=== PATIENT | female | born 1975 | race Hispanic/Latino ===

== ENCOUNTER 2017-11-29 04:14 | Inpatient (IN) | payer OTHER ==
[~2017-11-29] VITALS: Ht 160 cm; Wt 113.9 kg
[~2017-11-29 04:14] MED LIST: FENOFIBRIC ACI105 MG PO; METFORMIN HCL1000 M1 PO; NIASPAN500 M1 PO
--- NOTE | 2017-11-29 06:28 | Admission Core Measures ---
Acute Coronary Syndrome (CM) ACS Core Measures Acute Coronary Syndrome Diagnosis No Congestive Heart Failure (NEW) CHF Core Measures Congestive Heart Failure Diagnosis No Cerebrovascular Accident (NEW) CVA Core Measures CVA/TIA Diagnosis No Venous Thromboembolism VTE Core Cristiana (View Protocol) VTE Risk Factors Surgery No Mechanical VTE Prophylaxis d/t N/A MechProphylax Ordered No VTE Pharm Prophylaxis d/t NA PharmProphylax ordered Problem List As ranked by this Provider includes Assessment & Plan 1. S/P laparoscopic sleeve gastrectomy 2. Diabetes 3. Morbid obesity HOME MEDS Home Med List Fenofibric Acid 105 MG TABLET 1 TAB PO DAILY TRIGLYCERIDES (Reported) Metformin HCl 1,000 MG TABLET 1 TAB PO BID DM (Reported) Niacin (Niaspan) 500 MG TAB.ER.24H 1 TAB PO DAILY CHOLESTEROL/TRIGLYCERIDES ( Reported)
--- NOTE | 2017-11-29 06:29 | Surg Short-stay <48hrs Dis Sum ---
Visit Information Visit Dates Admission Date: 11/29/17 Discharge Date: 12/01/17 Surgical Short Stay DC Summary Admission Diagnosis: Morbid Obesity (BMI 45), DM, JOSE, Hyperlipidemia Final Diagnosis: SAME ABOVE, S/P Surgery Date: 11/29/17 Name of Procedure: Laparoscopic Sleeve Gastrectomy Procedure(s): Surgery Date: 11/29/17 Name of Procedure: Laparoscopic Sleeve Gastrectomy Summary/Significant Findings: Electively scheduled laparoscopic sleeve gastrectomy by on 11/29/18 for history of morbid obesity (BMI 45), DM, JOSE, and Hyperlipidemia. Started on a stage 1 bariatric diet post-operatively. An upper gi study done on POD#1 was negative for leak and obstruction. Pain control transitioned from iv to oral medication as able. Accuchecks ordered with sliding scale coverage for history of diabetes, and home metformin was held / stopped. Lovenox teaching done prior to discharge home. Condition at Discharge: stable Discharge Disposition: home or self care Discharge instructions provided to patient/family: Yes Post discharge follow-up plan: follow up with in one week lovenox teaching done Copies to: Rachel HAHN,Alan Santiago
[2017-11-29] MEDS ORDERED: PROTONIX40 M3 PO (08:17)
[2017-11-29] MEDS ORDERED: HYCET 7.5 MG-3473 ML PO (08:17)
[2017-11-29] MEDS ORDERED: LOVENOX40 MG/0.1 SC (08:17)
--- NOTE | 2017-11-29 09:29 | Operative Report ---
Operative/Inv Procedure Report Surgery Date: 11/29/17 Name of Procedure: Laparoscopic Sleeve Gastrectomy Pre-Operative Diagnosis: Morbid Obesity BMI 45, DM, JOSE, Hyperlipidemia Post-Operative Diagnosis: Same Estimated Blood Loss: less than 50ml Surgeon/Programmable Logic Controller Assembler: James Botello DO Anesthesia: general endotracheal tube IV Fluids: 800 cc Drains: None Specimens: Stomach Complications: None Condition: Stable Operative Indication: This is a 42-year-old female presented to the office for workup for bariatric surgery. After appropriate workup was completed I discussed the patient the band, the sleeve, and the gastric bypass. The patient chose to undergo a sleeve gastrectomy. All risks including but not limited to bleeding, infection, leak, stricture, injury to surrounding bowel/esophagus/stomach/liver/spleen, long-term reflux, DVT/PE, and mortality 09/999 patients were discussed in detail. The patient understood everything and decided to proceed. Operative/Procedure Note Note: The patient was brought to the operating room and placed on the operating room table in supine position. Venodyne stockings were placed and adequate general endotracheal anesthesia was obtained. The patient was prepped and draped in standard surgical fashion. Began the procedure by making a 2 cm transverse incision supraumbilically and slightly to the left of the midline. Then using a 12 mm clear Visiport and a 10 mm 0 laparoscope, the abdominal cavity was accessed. Great care was taken to go through the anterior rectus sheath, the posterior rectus sheath, and through the peritoneum. Once we entered the peritoneum the abdominal cavity was insufflated to 15 mmHg. Upon initial examination no obvious gross pathology was seen. Accessory trocars were placed, 5 mm in the epigastrium for the [place] liver retractor. The retractor was inserted and the liver was retracted anteriorly exposing the hiatus, no hiatal hernia was seen. 5 mm ports were placed in the right and left upper quadrant, a 5 mm left lateral port, and a 15 mm right lateral port. Began the procedure by mobilizing the greater curvature of the stomach approximately 7 cm from the pylorus. Once the retrogastric space was reached the whole greater curvature was mobilized maintaining hemostasis using Harmonic scalpel. Full hiatal dissection was performed, no hiatal hernia was seen. Posterior adhesions were taken down using Harmonic scalpel as well. Once the stomach was adequately mobilized a 38 Syriac bougie was inserted and placed along the lesser curvature of the stomach. Once the bougie was in the appropriate position we began creating our sleeve, two 60 mm black staple loads with seamguard followed by three 60 mm purple staple loads with seamguard as well. Great care was taken to leave ample room at the incisura angularis, to prevent any twisting or kinking of the sleeve, to stay lateral to the esophagogastric fat pad, and to do a full fundal excision. At the completion of the staple line the staple line was examined, it appeared intact and no obvious bleeding was noted. The bougie was removed, the sleeve was lying nicely without any twisting or kinking. The resected stomach was removed through the right lateral port site. The port and the left upper quadrant were irrigated until clear. All ports were removed under direct visualization no obvious bleeding was noted. The 15 mm port site fascia was closed using 0 Vicryl suture. The skin was closed using 4-0 Monocryl. Steri-Strips and dressings were placed. The patient was successfully extubated and transferred to the recovery room in stable condition. The patient tolerated the procedure well with no complications. Findings: No hiatal hernia, 38 Fr Bougie CC: Rachel HAHN,Alan Santiago
--- NOTE | 2017-11-29 09:47 | Patient Discharge Instructions ---
Discharge Instructions General Discharge Information You were seen/treated for: Morbid Obesity (BMI 45), DM, JOSE, Hyperlipidemia You had these procedures: Surgery Date: 11/29/17 Name of Procedure: Laparoscopic Sleeve Gastrectomy Watch for these problems: fever>101.3, increased pain, redness/swelling/drainage, dizziness, shortness of breath, chest pain No bath, but you may shower: Yes Other wound care: ok to remove outer dressings. leave white steri strips in place. keep incisions clean & dry. ok to shower. Diet Continue normal diet: Yes Recommended Diet: Bariatric Additional DIET Information: weekly bariatric stage diet advancements as tolerated, as directed Activity Full Activity/No Limits: No Activity Self Limited: Yes Pounds, do NOT lift more than: 10 Other activity limits: no heavy lifting. no strenuous activity. Acute Coronary Syndrome Inclusion Criteria At DC or during hospital stay patient has or had the following: ACS DIAGNOSIS No Discharge Core Measures Meds if any: Prescribed or Continued at Discharge Meds if any: NOT Prescribed or Continued at Discharge Congestive Heart Failure Inclusion Criteria At DC or during hospital stay patient has or had the following: CHF DIAGNOSIS No Discharge Core Measures Meds if any: Prescribed or Continued at Discharge Meds if any: NOT Prescribed or Continued at Discharge Cerebrovascular accident Inclusion Criteria At DC or during hospital stay patient has or had the following: CVA/TIA Diagnosis No Discharge Core Measures Meds if any: Prescribed or Continued at Discharge Meds if any: NOT Prescribed or Continued at Discharge Venous thromboembolism Inclusion Criteria VTE Diagnosis No VTE Type NONE VTE Confirmed by (Test) NONE Discharge Core Measures - Per Current guidelines, there needs to be overlap - treatment for the first 5 days of Warfarin therapy. - If discharged on Warfarin prior to 5 days of - overlap therapy, the patient will need to be - assessed for post discharge needs including - *Post discharge parental anticoagulation - *Warfarin and/or parental anticoagulation education - *Follow up date to check INR post discharge At least 5 days overlap therapy as Inpatient No Meds if any: Prescribed or Continued at Discharge Note: Overlap Therapy is Warfarin and Anticoagulant Meds if any: NOT Prescribed or Continued at Discharge
[2017-11-29 11:30] VITALS: BP 136/88
--- NOTE | 2017-11-29 13:50 | PN- Bariatrics ---
Subjective Subjective: POST-OP NOTE No complaints. Slight nausea earlier, but feeling better currently. Out of bed to bathroom. Voided 200mls. No dizziness. No shortness of breath. No chest pains. Objective Vital Signs and I&Os Vital Signs Date Time Temp Pulse Resp B/P B/P Pulse O2 O2 Flow FiO2 Mean Ox Delivery Rate 11/29 1130 97 Nasal 3.0L Cannula 11/29 1130 98.1 84 16 136/88 97 Nasal 3.0L Cannula Intake & Output 11/29 1600 11/29 0800 11/29 0000 11/28 1600 11/28 0800 11/28 0000 Intake Total Output Total Balance Patient 245 lb Weight Weight Reported by Patient Measurement Method Physical Exam: General - alert & oriented x 3. comfortable. no acute distress. Lungs - clear bilaterally. no w/r/r. Cardiac - s1s2. reg. Abdomen - soft. dressings c/d/i. no drains. Extremities - warm bilaterally. no c/c/e. calves soft and nontender b/l. Current Medications: Current Medications Sig/Yudelka Start time Last Medication Dose Route Stop Time Status Admin Acetaminophen 1,000 MG Q6H 11/29 1200 AC 11/29 N/A 1 UNIT IV 11/30 0614 1136 Clindamycin 900 MG IQ8 11/29 1600 AC Dextrose/Water 50 ML IV 11/30 0044 Clindamycin 900 MG ONCE 11/29 0000 DC Dextrose/Water 50 ML IV 11/29 2359 Dexamethasone 8 MG ONCE PRN 11/29 1345 UNVr IV PUSH Dextrose/Sodium 1,000 ML Q8H 11/29 1130 AC 11/29 Chloride IV 1134 Heparin Sodium 5,000 UNIT Q8 11/29 1400 AC (Porcine) SC Heparin Sodium 5,000 UNIT ONCE 11/29 0000 DC (Porcine) SC 11/29 2359 Hydrocodone Bitart/ 15 ML Q6P PRN 11/29 1130 AC Acetaminophen PO Insulin Aspart 0 Q6 11/29 1200 AC SC Morphine Sulfate 2 MG Q4-6 PRN PRN 11/29 1130 AC 11/29 IV 1240 Ondansetron HCl 4 MG Q6P PRN 11/29 1130 AC IV Pantoprazole Sodium 40 MG DAILY 11/29 1000 AC IV Simethicone 40 MG Q6P PRN 11/29 1130 AC PO Assessment/Plan Assessment/Plan This 42 year old female with history of morbid obesity (BMI 45), DM, JOSE, and Hyperlipidemia is POD#0 s/p laparoscopic sleeve gastrectomy stage 1 bariatric diet as tolerated npo after midnight for possible upper gi study in am pain control as ordered anti-emetics as needed oob/ambulation hep sc - dvt ppx. lovenox teaching for discharge (script given pre-op) mery-operative clinda x 2 accuchecks / ss coverage. hold metformin f/u AM labs d/c planning, tomorrow vs monday will d/w Core Measures Venous Thromboembolism VTE Risk Factors Surgery No Mechanical VTE Prophylaxis d/t N/A MechProphylax Ordered No VTE Pharm Prophylaxis d/t NA PharmProphylax ordered
[2017-11-29 15:30] VITALS: BP 120/80
[2017-11-29 23:40] VITALS: BP 130/75
[2017-11-30 06:05] VITALS: BP 140/84
[2017-11-30 08:25] LABS: ABSOLUTE BASOPHIL COUNT 0 /CUMM (0.0-0.2); ABSOLUTE EOSINOPHIL COUNT 0 /CUMM (0.0-0.7); ABSOLUTE GRANULOCYTE CT 8.5 /CUMM (1.4-6.5); ABSOLUTE LYMPH COUNT 1.7 /CUMM (1.2-3.4); ABSOLUTE MONOCYTE COUNT 0.9 /CUMM (0.10-0.60); BASOPHIL % 0.3 % (0.0-2.0); EOSINOPHIL % 0.1 % (0-5); GRANULOCYTE % 76.1 % (42.2-75.2); HEMATOCRIT 37.5 % (37-47); MEAN CORPUSCULAR HGB 28.5 PG (27.0-31.0); MEAN CORPUSCULAR HGB CONC 32.9 G/DL (33.0-37.0); MEAN CORPUSCULAR VOLUME 86.7 FL (81.0-99.0); PLATELET COUNT 363 /CUMM (130-400); RBC DISTRIBUTION WIDTH 13.1 % (11.5-14.5); RED BLOOD CELL CT 4.32 /CUMM (4.20-5.40); WHITE BLOOD CELL COUNT 11.2 /CUMM (4.8-10.8)
--- NOTE | 2017-11-30 08:26 | PN- Student ---
Vincent Loepz 11/30/17 0806: Subjective Subjective: PATIENT REPORTS FEELING WELL SINCE OPERATION, ONE EPISODE OF N/V EARLY THIS A.M. AFTER TOLERATING STAGE 1 DIET YESTERDAY. MILD INCISIONAL PAIN WELL CONTROLLED WITH IV TYLENOL. PATIENT HAS AMBULATED MULTIPLE TIMES SINCE OPERATION, BM X2, AND + FLATUS. PATIENT DENIES CP, SOB, HEADACHE, FEVER CHILLS, NUMBNESS AND TINGLING. Objective Objective: VITALS: TEMP: 98.3 DEGREES F PULSE: 66 BPM RESP: 20 BREATHS/MIN BP: 140/84 O2: 95% RA I/O: 500 (IV)/850 GENERAL: LAYING IN HOSPITAL BED, MILD DISCOMFORT, ACTIVELY PARTICIPATED IN EXAM ABDOMEN: MILD DISTENTION, DRESSINGS C/D/I, NO SURROUNDING ERYTHEMA, NORMOACTIVE BOWEL SOUNS IN ALL QUADRANTS, APPROPRIATE INCISIONAL TENDERNESS CARDIAC: NORMAL RATE, REGULAR RHYTHM, NO MRG PULM: CTAB, NO ACCESORY MUSCLE USAGE EXTREMITIES: NO EDEMA, NO ERYTHEMA, NONTENDER B/L LE, MOTOR AND NEUROLOGICAL FUNCTION GROSSLY INTACT Assessment/Plan Assessment: PATIENT IS A 42 Y/O FEMALE, PMH MORBID OBESITY, DM, JOSE, HLD, POD #1 S/P LAP SLEEVE GASTRECTOMY. POSSIBLE EVAL FOR OBSTRUCTION/LEAK DUE TO EPISODE OF VOMIT THIS A.M, WILL DISCUSS WITH DR. BOTELLO. PAIN WELL CONTROLLED, BOWEL FUNCTION PROGRESSING WELL. Plan: DISCUSS POSSIBLE UGI EVAL WITH DR. BOTELLO DIET: NPO PAIN CONTROL WITH IV TYLENOL. MORPHINE FOR BREAKTHROUGH PAIN PPX: SQH, PNEUMATIC COMPRESSION STOCKINGS IN PLACE. PROTONIX FOR GI PPX DM: SLIDING SCALE INSULIN ABX: CLINDAMYCIN OOB TOLERATED DRESSING CHANGE POD #2 Celeste Warren 11/30/17 0908: Assessment/Plan Assessment: Agree with PA-S assessement and plan. NPO/IVF until we speak to Dr. Botello regarding UGI. Also clindamycin to fall off after two doses total. James Botello DO 11/30/17 1930: Attending MD Review Statement Attending Sign Off Attending Cosign Statement: I have: examined this patient, reviewed al EMR data, personally reviewd images, discussd w/resident/PA[employer], discussed mgmt plan w/pt, agreed w/resident/ PA[employer]. Other Findings: Patient seen and examined, agree with above. Doing better, N/V improved, pain ok. AVSS UO ok. Abd-soft. Labs ok. UGI ok. Stage I diet, OOB, DVT prophylaxis.
--- NOTE | 2017-11-30 11:16 | RADIOLOGY REPORT ---
EXAMINATION: FL UPPER GI SERIES CLINICAL INFORMATION: 42-year-old female status post sleeve gastrectomy. Evaluate for leak or obstruction. COMPARISON: None TECHNIQUE: A single contrast upper GI series with fluoroscopy and spot imaging was performed. The patient ingested 30 mL of Gastroview without difficulty and was evaluated in the upright position. FINDINGS: Postsurgical changes related to sleeve gastrectomy. No evidence of contrast leak or obstruction. FLUOROSCOPY TIME: 44 seconds NUMBER OF IMAGES: 7 images IMPRESSION: No evidence of contrast leak or obstruction status post sleeve gastrectomy.
[2017-11-30 16:28] VITALS: BP 136/78
[2017-11-30 22:25] VITALS: BP 122/88
[2017-12-01 06:03] VITALS: BP 118/76
[2017-12-01] MEDS ORDERED: HYCET 7.5 MG-3473 ML PO (08:33)
[2017-12-01] MEDS ORDERED: PROTONIX40 M3 PO (08:33)
--- NOTE | 2017-12-01 08:43 | PN- Bariatrics ---
Subjective Subjective: No complaints. Pain controlled. Tolerating stage 1 diet. No more nausea. Passing flatus and +bms. Voiding well. Ambulating without difficulty. No dizziness. No shortness of breath. No chest pains. Objective Vital Signs and I&Os Vital Signs Date Time Temp Pulse Resp B/P B/P Pulse O2 O2 Flow FiO2 Mean Ox Delivery Rate 12/01 0603 98.5 65 20 118/76 94 Room Air 11/30 2225 98.5 77 19 122/88 96 Room Air 11/30 2200 96 Room Air 11/30 1628 99.0 83 16 136/78 96 Room Air 11/30 1600 95 Room Air Room Air 11/30 1400 95 Room Air 11/30 1200 95 Room Air Intake & Output 12/01 1600 12/01 0800 12/01 0000 11/30 1600 11/30 0800 11/30 0000 Intake Total 3539 377 4968 500 60 Output Total 600 900 850 675 Balance 1000 135 110 -350 -615 Intake, IV 2962 706 8909 500 Intake, Oral 360 0 60 Number 2 1 2 Bowel Movements Output, Urine 600 900 850 675 Patient 251 lb Weight Weight Bed scale Measurement Method Physical Exam: General - alert & oriented x 3. comfortable. no acute stress. Lungs - clear bilaterally. no w/r/r. Cardiac - s1s2. reg. Abdomen - soft. dressings c/d/i. expected mery-incisional tenderness. no drains. Extremities - warm bilaterally. no c/c/e. calves soft and nontender b/l. Current Medications: Current Medications Sig/Yudelka Start time Last Medication Dose Route Stop Time Status Admin Dexamethasone 8 MG ONCE PRN 11/29 1345 AC IV PUSH Dextrose/Sodium 1,000 ML Q8H 11/29 1130 AC 12/01 Chloride IV 0340 Heparin Sodium 5,000 UNIT Q8 11/29 1400 AC 12/01 (Porcine) SC 0539 Hydrocodone Bitart/ 15 ML Q6P PRN 11/29 1130 AC 11/29 Acetaminophen PO 2107 Insulin Aspart 0 Q6 11/29 1200 AC 11/29 SC 1657 Ketorolac 15 MG Q8 11/30 1646 AC 12/01 Tromethamine IV 12/02 0601 0540 Morphine Sulfate 2 MG Q4-6 PRN PRN 11/29 1130 AC 12/01 IV 0337 Ondansetron HCl 4 MG .STK-MED ONE 11/30 1200 DC IM 11/30 1201 Ondansetron HCl 4 MG Q6P PRN 11/29 1130 AC 11/30 IV 1201 Pantoprazole Sodium 40 MG DAILY 11/29 1000 AC IV Patient Medication 1 ED ONE ONE 11/30 1315 DC Teaching ED 11/30 1316 Promethazine HCl 25 MG Q4P PRN 11/30 1415 AC IV 12/07 1414 Simethicone 40 MG Q6P PRN 11/29 1130 AC 11/30 PO 2130 Results Last 48 Hours of Labs: Laboratory Tests 11/30 0643 Chemistry Sodium (137 - 145 mmol/L) 139 Potassium (3.5 - 5.1 mmol/L) 3.5 Chloride (98 - 107 mmol/L) 101 Carbon Dioxide (22 - 30 mmol/L) 26 Anion Gap (5 - 16) 12 BUN (7 - 17 mg/dL) 3 L Creatinine (0.5 - 1.0 mg/dL) 0.6 Estimated GFR (>60 ml/min) > 60 BUN/Creatinine Ratio (7 - 25 %) 5.0 L Glucose (65 - 99 mg/dL) 116 H Magnesium (1.6 - 2.3 mg/dL) 1.5 L Hematology CBC w Diff NO MAN DIFF REQ WBC (4.8 - 10.8 /CUMM) 11.2 H RBC (4.20 - 5.40 /CUMM) 4.32 Hgb (12.0 - 16.0 G/DL) 12.3 Hct (37 - 47 %) 37.5 MCV (81.0 - 99.0 FL) 86.7 MCH (27.0 - 31.0 PG) 28.5 MCHC (33.0 - 37.0 G/DL) 32.9 L RDW (11.5 - 14.5 %) 13.1 Plt Count (130 - 400 /CUMM) 363 MPV (7.4 - 10.4 FL) 10.0 Gran % (42.2 - 75.2 %) 76.1 H Lymphocytes % (20.5 - 51.1 %) 15.5 L Monocytes % (1.7 - 9.3 %) 8.0 Eosinophils % (0 - 5 %) 0.1 Basophils % (0.0 - 2.0 %) 0.3 Absolute Granulocytes (1.4 - 6.5 /CUMM) 8.5 H Absolute Lymphocytes (1.2 - 3.4 /CUMM) 1.7 Absolute Monocytes (0.10 - 0.60 /CUMM) 0.9 H Absolute Eosinophils (0.0 - 0.7 /CUMM) 0 Absolute Basophils (0.0 - 0.2 /CUMM) 0 Assessment/Plan Assessment/Plan This 42 year old female with hx morbid obesity (BMI 45), hx dm, fantasma, and hyperlipidemia, is POD#2 s/p laparoscopic sleeve gastrectomy tolerating stage 1 bariatric diet pain controlled oob/ambulating well lovenox teaching done for continued home ppx (script given pre-op) accuchecks stable off metformin protonix - gi ppx d/c home today will d/w Core Measures Venous Thromboembolism VTE Risk Factors Surgery No Mechanical VTE Prophylaxis d/t N/A MechProphylax Ordered No VTE Pharm Prophylaxis d/t NA PharmProphylax ordered
== END 2017-12-01 10:23 | DRG 403 ==
LOC: 2NB 04:14 → SDA 04:14 → ENRESERV 10:30 → ENTRNSPT 10:54 → EDTRNSPT 11:00 → EDTRNSPTSTS 11:00 → CMPTRNSPT 11:11 → 2NB 11:16 → ENPENDDIS 12-01 08:37 → 2NB 12-01 10:23
PROVIDERS: Physician Assistant
PROC: 3E0T3BZ Introduction of Anesthetic Agent into Peripheral Nerves and Plexi, Percutaneous Approach (ICD-10-PCS; principal; 2017-11-29)
PROC: 0DB64Z3 Excision of Stomach, Percutaneous Endoscopic Approach, Vertical (ICD-10-PCS; principal; 2017-11-29)
DX: E66.01 Morbid (severe) obesity due to excess calories (principal); Z68.42 Body mass index [BMI] 45.0-49.9, adult; E11.9 Type 2 diabetes mellitus without complications; Z79.84 Long term (current) use of oral hypoglycemic drugs; G47.33 Obstructive sleep apnea (adult) (pediatric); E78.5 Hyperlipidemia, unspecified; K21.9 Gastro-esophageal reflux disease without esophagitis; Z88.0 Allergy status to penicillin
CPT/HCPCS: 2NBP; 36592; 74240; 82436; 88307; C9399; J0131; J1100; J1644; J2405; J2550; J7042